=== PATIENT | female | born 1985 | race Caucasian/White ===

== ENCOUNTER 2018-12-10 12:19 | Emergency (ER) | payer OTHER ==
[~2018-12-10] VITALS: Ht 170.2 cm; Wt 90.7 kg
--- OUTSIDE RECORDS SUMMARY | 2018-12-10 12:22 | XMS REPORT ---
Author Author David Segura [facility] eClinicalWorks Address Unknown Phone Unavailable Care Team Providers Care Sales Floor Manager Name Role Phone David Segura CP Unavailable Allergies, Adverse Reactions, Alerts Substance Reaction Event Type N.K.D.A. Info Not Available Non Drug Allergy Problems Problem Type Condition Code Onset Dates Condition Status Assessment Lupus M32.9 Active Problem Lupus M32.9 Active Medications Medication Code System Code Instructions Start Date End Date Status Dosage Ibuprofen ND 39403366814 200 MG Orally Three times a day Active 1 tablet with food or milk as needed BuPROPion HCl (Smoking Deter) ND 50414430221 150 MG Orally Once a day Active 1 tablet in the morning Levothyroxine Sodium ND 26896847109 50 MCG Orally Once a day Active 1 tablet on an empty stomach in the morning Pantoprazole Sodium ND 35029512052 40 MG Orally Once a day Active 1 tablet Escitalopram Oxalate ND 78302914693 20 MG Orally Once a day Active 0.5 tablet Hydroxychloroquine Sulfate ND 38047958295 200 MG Orally bid Jul 02, 2018 Active 1 tablet with food or milk Vital Signs Date/Time: Jul 15, 2018 BMI 36.33 Index Weight 232 lbs Height 67 in Temperature 98.1 F Cardiac Monitoring Heart Rate 74 /min Blood Pressure Diastolic 64 mm Hg Blood Pressure Systolic 110 mm Hg Results No Known Results Summary Purpose eClinicalWorks Submission
--- OUTSIDE RECORDS SUMMARY | 2018-12-10 12:22 | XMS REPORT ---
Author Uriel Gilbert Organization eClinicalWorks Address Unknown Phone Unavailable Care Team Providers Care Wood Gang Sawyer Name Role Phone Uriel Santana CP Unavailable Allergies No Known Allergies Problems Problem Type Condition Code Onset Dates Condition Status Problem Lupus M32.9 Active Medications No Known Medications Results No Known Results Summary Purpose eClinicalWorks Submission
--- OUTSIDE RECORDS SUMMARY | 2018-12-10 12:22 | XMS REPORT ---
Author Author Uriel Santana Organization eClinicalWorks Address Unknown Phone Unavailable Care Team Providers Care Underground Heavy Equipment Operator Name Role Phone Uriel Santana CP Unavailable Allergies No Known Allergies Problems Problem Type Condition Code Onset Dates Condition Status Problem Lupus M32.9 Active Medications No Known Medications Results No Known Results Summary Purpose eClinicalWorks Submission
--- OUTSIDE RECORDS SUMMARY | 2018-12-10 12:22 | XMS REPORT ---
Author Uriel Gilbert Organization eClinicalWorks Address Unknown Phone Unavailable Care Team Providers Care University Demonstrator Name Role Phone Uriel Santana CP Unavailable Allergies No Known Allergies Problems Problem Type Condition Code Onset Dates Condition Status Problem Lupus M32.9 Active Medications No Known Medications Results No Known Results Summary Purpose eClinicalWorks Submission
--- OUTSIDE RECORDS SUMMARY | 2018-12-10 12:22 | XMS REPORT ---
Author Author David Segura [facility] eClinicalWorks Address Unknown Phone Unavailable Care Team Providers Care Reconditioning Associate Name Role Phone ImeldaDavid faria Unavailable Allergies, Adverse Reactions, Alerts Substance Reaction Event Type N.K.D.A. Info Not Available Non Drug Allergy Problems Problem Type Condition Code Onset Dates Condition Status Assessment Lupus M32.9 Active Problem Lupus M32.9 Active Medications Medication Code System Code Instructions Start Date End Date Status Dosage Escitalopram Oxalate ND 18485189974 20 MG Orally Once a day Active 0.5 tablet Hydroxychloroquine Sulfate ND 95709353406 200 MG Orally bid Jul 02, 2018 Active 1 tablet with food or milk BuPROPion HCl (Smoking Deter) ND 15122151504 150 MG Orally Once a day Active 1 tablet in the morning Ibuprofen ND 32482058847 200 MG Orally Three times a day Active 1 tablet with food or milk as needed Nexium ND 56515535577 40 MG Orally Once a day Active 1 capsule Levothyroxine Sodium ND 91534482454 50 MCG Orally Once a day Active 1 tablet on an empty stomach in the morning Vital Signs Date/Time: Oct 08, 2018 BMI 35.58 Index Weight 234 lbs Height 68 in Temperature 97.1 F Cardiac Monitoring Heart Rate 72 /min Blood Pressure Diastolic 70 mm Hg Blood Pressure Systolic 118 mm Hg Results Name Result Date Reference Range Unit Abnormality Flag URINALYSIS WITH MICROSCOPIC ----BILIRUBIN NEGATIVE 45360760 NEGATIVE ----UROBILINOGEN <2.0 54066703 <=2.0 MG/DL ----SPECIFIC GRAVITY 1.018 32461009 1.005-1.035 ----LEUKOCYTE ESTERASE TRACE 20109775 NEGATIVE A ----NITRITE NEGATIVE 35691931 NEGATIVE ----pH 6.0 10359509 5.0-9.0 ----EPITHELIAL CELLS 5-10 11846198 0-10 /HPF ----PROTEIN NEGATIVE 00535572 NEGATIVE ----RED BLOOD CELLS 0-2 48531894 0-5 /HPF ----GLUCOSE NEGATIVE 32132621 NEGATIVE ----COLOR YELLOW 20181008 YELLOW-STRAW ----KETONES NEGATIVE 14778959 NEGATIVE ----WHITE BLOOD CELLS 0-5 69040930 0-5 /HPF ----APPEARANCE SLIGHTLY CLOUDY 04248265 CLEAR ----OCCULT BLOOD NEGATIVE 96483333 NEGATIVE SEDIMENTATION RATE ----SEDIMENTATION RATE 5 52104194 0-20 MM/HOUR COMPLEMENT C3 AND C4 ----COMPLEMENT C3 140 01236207 90-180 MG/DL ----COMPLEMENT C4 18 01657627 10-40 MG/DL COMPREHENSIVE METABOLIC PANEL ----SODIUM 140 41490314 133-146 MEQ/L ----CALC BUN/CREAT 15 84749394 6-28 RATIO ----CHLORIDE 100 20739033 95-107 MEQ/L ----POTASSIUM 4.4 64851077 3.5-5.4 MEQ/L ----CALCIUM 9.3 83298949 8.5-10.5 MG/DL ----PROTEIN, TOTAL 6.9 97047963 6.1-8.3 G/DL ----CARBON DIOXIDE 26 05912875 19-31 MEQ/L ----CALC A/G RATIO 2.0 39747575 1.0-2.6 RATIO ---- eGFR AMER. 125 22839641 >60 ML/MIN/1.73 ----BILIRUBIN, TOTAL 0.3 25030493 <=1.2 MG/DL ---- eGFR NON- AMER. 108 24014388 >60 ML/MIN/1.73 ----BUN 11 02048136 6-20 MG/DL ----ALBUMIN 4.6 74187467 3.5-5.2 G/DL ----CALC GLOBULIN 2.3 54275131 1.9-3.7 G/DL ----CREATININE 0.74 21774740 0.60-1.30 MG/DL ----ALT 40 71700710 5-40 U/L ----GLUCOSE 100 33075946 70-99 MG/DL H ----ALKALINE PHOSPHATASE 64 83009351 40-114 U/L ----AST 20 17892057 9-40 U/L CBC W/AUTO DIFF ----MCH 30.3 35493531 27.0-34.0 PG ----MCV 85.5 26383476 80.0-100.0 fL ----HEMATOCRIT 42.3 27201011 34.0-45.0 % ----HEMOGLOBIN 15.0 74257308 11.5-15.5 G/DL ----NEUTROPHILS 50.9 44785942 40.0-74.0 % ----RDW 12.1 41439254 11.0-15.0 % ----MCHC 35.5 36313315 32.0-35.5 G/DL ----EOSINOPHILS 3.7 60002467 0.0-7.0 % ----BASOPHILS 0.6 03334428 0.0-2.0 % ----PLATELET COUNT 248 26481472 130-400 K/UL ----RBC 4.95 03670853 3.80-5.10 M/UL ----WBC 4.6 72258784 4.0-11.0 K/UL ----LYMPHOCYTES 33.1 62470340 19.0-48.0 % ----MONOCYTES 11.7 17662873 4.0-13.0 % dsDNA ANTIBODY ----dsDNA ANTIBODY 10.0 20181008 SEE BELOW IU/ML H C-REACTIVE PROTEIN ----C-REACTIVE PROTEIN 0.6 55412437 <0.5 MG/DL H Summary Purpose eClinicalWorks Submission
--- OUTSIDE RECORDS SUMMARY | 2018-12-10 12:22 | XMS REPORT ---
Author Author David Segura [facility] eClinicalWorks Address Unknown Phone Unavailable Care Team Providers Care Automotive Fleet Supervisor Name Role Phone David Segura CP Unavailable Allergies No Known Allergies Problems Problem Type Condition Code Onset Dates Condition Status Assessment Lupus M32.9 Active Problem Lupus M32.9 Active Medications Medication Code System Code Instructions Start Date End Date Status Dosage Hydroxychloroquine Sulfate [facility] 88715995580 200 MG Orally bid Jul 02, 2018 Active 1 tablet with food or milk Results No Known Results Summary Purpose eClinicalWorks Submission
--- OUTSIDE RECORDS SUMMARY | 2018-12-10 12:22 | XMS REPORT ---
Author Uriel Gilbert Organization eClinicalWorks Address Unknown Phone Unavailable Care Team Providers Care Dirt Contractor Name Role Phone Uriel Santana CP Unavailable Allergies No Known Allergies Problems Problem Type Condition Code Onset Dates Condition Status Problem Lupus M32.9 Active Medications No Known Medications Results No Known Results Summary Purpose eClinicalWorks Submission
--- OUTSIDE RECORDS SUMMARY | 2018-12-10 12:22 | XMS REPORT | Continuity of Care Document ---
Author Author [facility] Address Unknown Phone Unavailable Problems Problem Status Onset Date Classification Date Reported Comments Source Lupus Active Problem 10/21/2018 Andrew Santana Medications Medication Details Route Status Patient Instructions Ordering Provider Order Date Source Hydroxychloroquine Sulfate 1 tablet with food or milk Orally Active 200 MG Orally bid Imelda 07/02/2018 Andrew Santana Escitalopram Oxalate 0.5 tablet Orally Active 20 MG Orally Once a day Imelda Andrew Santana BuPROPion HCl (Smoking Deter) 1 tablet in the morning Orally Active 150 MG Orally Once a day Imelda Andrew Santana Ibuprofen 1 tablet with food or milk as needed Orally Active 200 MG Orally Three times a day Imelda Andrew Santana Nexium 1 capsule Orally Active 40 MG Orally Once a day Imelda Andrew Santana Levothyroxine Sodium 1 tablet on an empty stomach in the morning Orally Active 50 MCG Orally Once a day Imelda Andrew Santana Pantoprazole Sodium 1 tablet Orally Active 40 MG Orally Once a day Imelda Andrew Santana Allergies, Adverse Reactions, Alerts Substance Category Reaction Severity Reaction type Status Date Reported Comments Source N.K.D.A. Adverse Reaction Info Not Available Adverse Reaction Active 10/08/2018 Andrew Santana Immunizations Immunization Date Given Site Status Last Updated Comments Source Results Order Name Results Value Reference Range Date Interpretation Comments Source Vital Signs Vital Sign Value Date Comments Source Weight 234 10/08/2018 Andrew Santana Height 68 10/08/2018 Andrew Kaurer Temperature Oral (F) 97.1 F 10/08/2018 Andrew Santana Heart Rate 72 10/08/2018 Andrew Santana Diastolic (mm Hg) 70 10/08/2018 Andrew Satnana Systolic (mm Hg) 118 10/08/2018 Andrew Kaurer Weight 232 07/15/2018 Andrew Santana Height 67 07/15/2018 Andrew Santana Temperature Oral (F) 98.1 F 07/15/2018 Andrew Santana Heart Rate 74 07/15/2018 Andrew Kaurer Diastolic (mm Hg) 64 07/15/2018 Andrew Santana Systolic (mm Hg) 110 07/15/2018 Andrew Santana Weight 237 07/09/2018 Andrwe Santana Height 67.5 07/09/2018 Andrew Santana Temperature Oral (F) 98.1 F 07/09/2018 Andrew Santana Heart Rate 72 07/09/2018 Andrew Santana Diastolic (mm Hg) 82 07/09/2018 Andrew Santana Systolic (mm Hg) 114 07/09/2018 Andrew Santana Encounters Location Location Details Encounter Type Encounter Number Reason For Visit Attending Provider ADM Date DC Date Status Source Procedures Procedure Code Date Perfomer Comments Source
--- OUTSIDE RECORDS SUMMARY | 2018-12-10 12:22 | XMS REPORT ---
Author Author David Segura [facility] eClinicalWorks Address Unknown Phone Unavailable Care Team Providers Care Hydraulic Engineer Name Role Phone David Segura CP Unavailable Allergies, Adverse Reactions, Alerts Substance Reaction Event Type N.K.D.A. Info Not Available Non Drug Allergy Problems Problem Type Condition Code Onset Dates Condition Status Assessment Lupus M32.9 Active Problem Lupus M32.9 Active Medications Medication Code System Code Instructions Start Date End Date Status Dosage Escitalopram Oxalate ND 62431204049 20 MG Orally Once a day Active 0.5 tablet Pantoprazole Sodium ND 29757250933 40 MG Orally Once a day Active 1 tablet Hydroxychloroquine Sulfate ND 53954821796 200 MG Orally Once a day Jul 02, 2018 Active 1 tablet with food or milk Ibuprofen ND 07366734569 200 MG Orally Three times a day Active 1 tablet with food or milk as needed BuPROPion HCl (Smoking Deter) ND 68783955027 150 MG Orally Once a day Active 1 tablet in the morning Levothyroxine Sodium ND 47440766445 50 MCG Orally Once a day Active 1 tablet on an empty stomach in the morning Vital Signs Date/Time: Jul 09, 2018 BMI 36.57 Index Weight 237 lbs Height 67.5 in Temperature 98.1 F Cardiac Monitoring Heart Rate 72 /min Blood Pressure Diastolic 82 mm Hg Blood Pressure Systolic 114 mm Hg Results No Known Results Summary Purpose eClinicalWorks Submission
--- OUTSIDE RECORDS SUMMARY | 2018-12-10 12:22 | XMS REPORT ---
Author Uriel Gilbert Organization eClinicalWorks Address Unknown Phone Unavailable Care Team Providers Care Mechanical Developer Prover Name Role Phone Uriel Santana CP Unavailable Allergies No Known Allergies Problems Problem Type Condition Code Onset Dates Condition Status Problem Lupus M32.9 Active Medications No Known Medications Results No Known Results Summary Purpose eClinicalWorks Submission
[2018-12-10] MEDS ORDERED: KETOROLAC TROMETHAMINE 30 MG/ML VIAL IV STA (12:58)
[2018-12-10] MEDS ORDERED: SODIUM CHLORIDE 0.9% 1000ML 1,000 ML IV SCH (13:00)
[2018-12-10] MEDS ORDERED: METOCLOPRAMIDE HCL 10 MG/2ML VIAL IV ONE (13:00)
[2018-12-10] MEDS ORDERED: DIPHENHYDRAMINE HCL INJ 50 MG/ML VIAL IV ONE (13:00)
[2018-12-10 13:43] LABS: BASOPHILS % 0.6 % (0.0-1.0); EOSINOPHILS # (AUTO) 0.6 (0.0-0.4); EOSINOPHILS % 8.6 % (0.0-6.0); HEMATOCRIT 42.7 % (34.2-44.1); HEMOGLOBIN 14.7 g/dL (12.0-16.0); LYMPHOCYTES # (AUTO) 1.8 (1.0-3.2); LYMPHOCYTES % 26.4 % (18.0-39.1); MEAN CORPUSCULAR HEMOGLOBIN 30.1 pg (28-32); MEAN CORPUSCULAR HGB CONC 34.4 g/dL (31-35); MEAN CORPUSCULAR VOLUME 87.3 fL (81-99); MONOCYTES # (AUTO) 0.8 (0.2-0.8); MONOCYTES % 11.2 % (4.4-11.3); NEUTROPHILS # (AUTO) 3.7 (2.1-6.9); NEUTROPHILS % 52.9 % (38.7-80.0); PLATELET COUNT 264 x10e3/uL (140-360); RED BLOOD COUNT 4.89 x10e6/uL (3.6-5.1); RED CELL DISTRIBUTION WIDTH 12.6 % (11.7-14.4)
[2018-12-10 13:58] LABS: ALANINE AMINOTRANSFERASE 30 IU/L (0-55); ALBUMIN 3.8 g/dL (3.5-5.0); ALBUMIN/GLOBULIN RATIO 1.4 (0.8-2.0); ALKALINE PHOSPHATASE 50 IU/L (40-150); ANION GAP 12.4 mmol/L (8-16); BLOOD UREA NITROGEN 12 mg/dL (7-26); BUN/CREATININE RATIO 15 (6-25); CALCIUM 9.2 mg/dL (8.4-10.2); CARBON DIOXIDE 23 mmol/L (22-29); CHLORIDE 107 mmol/L (98-107); EST GLOMERULAR FILTRATION RATE > 60 ML/MIN (60-); GLUCOSE 106 mg/dL (74-118); POTASSIUM 4.4 mmol/L (3.5-5.1); SODIUM 138 mmol/L (136-145)
--- NOTE | 2018-12-10 14:09 | Diagnostic Imaging Report ---
Exam: Head CT without contrast History: Left-sided frontal headaches that radiates to back of head. Comparison studies: None Technique: Axial images were obtained from the skull base to the vertex. Coronal and sagittal images reconstructed from the axial data. Dose modulation, iterative reconstruction, and/or weight based adjustment of the mA/kV was utilized to reduce the radiation dose to as low as reasonably achievable. Radiation dose: Total DLP: 1036 mGy*cm. Estimated effective dose: DLP x 0.015 Intravenous contrast: None Findings: Scalp: No abnormalities. Bones: No fractures, blastic or lytic lesions. Brain sulci: Appropriate for age. Ventricles: Normal in size and configuration. No hydrocephalus. Extra-axial spaces: No masses, no fluid collection. Parenchyma: No abnormal densities. No masses, hemorrhage, acute or chronic vascular insults. Sellar/suprasellar region: No abnormalities. Craniocervical junction: Patent foramen magnum. No Chiari one malformation. Included paranasal sinuses: Clear. Middle ear and mastoid cavities: Clear. IMPRESSION: No abnormalities. Signed by: Dr. Darinel Haynes M.D. on 12/10/2018 2:06 PM
[2018-12-10 14:43] LABS: BILIRUBIN,URINE NEGATIVE (NEGATIVE); CLARITY,URINE CLEAR (CLEAR); COLOR,URINE YELLOW (YELLOW); KETONES,URINE NEGATIVE (NEGATIVE); LEUKOCYTE ESTERASE ,URINE NEGATIVE (NEGATIVE); NITRITE,URINE NEGATIVE (NEGATIVE); PREGNANCY TEST, URINE NEGATIVE (NEGATIVE); PROTEIN,URINE DIPSTICK NEGATIVE (NEGATIVE); URINE UROBILINOGEN 0.2 mg/dL (0.2 - 1)
[2018-12-10 14:56] LABS: AMORPHOUS SEDIMENT,URINE FEW (FEW); BACTERIA,URINE FEW /HPF; EPITHELIAL CELLS,URINE MODERATE /LPF
== END 2018-12-10 14:49 | disposition home or self-care (01) ==
LOC: ER 12:19
DX: G44.211 Episodic tension-type headache, intractable (principal); M32.9 Systemic lupus erythematosus, unspecified; E03.9 Hypothyroidism, unspecified
CPT/HCPCS: 36415; 70450; 80053; 81001; 81025; 85025; 87086; 99284; J1200; J1885; J2765; J7030

== ENCOUNTER 2019-05-17 15:57 | Emergency (ER) | payer OTHER ==
[~2019-05-17] VITALS: Ht 170.2 cm; Wt 90.7 kg
--- OUTSIDE RECORDS SUMMARY | 2019-05-17 16:00 | XMS REPORT | Continuity of Care Document ---
Author Author [facility] Address Unknown Phone Unavailable Problems Problem [...] Three times a day Imelda Andrew Santana BuPROPion HCl (Smoking Deter) 1 tablet in the morning Orally Active 150 MG Orally Once a day Imelda Andrew Santana Levothyroxine Sodium 1 tablet on an empty stomach in the morning Orally Active 50 MCG Orally Once a day Imelda Andrew Santana Nexium 1 [...] Santana Diastolic (mm Hg) 70 10/08/2018 Andrew Santana Systolic (mm Hg) 118 10/08/2018 Andrew Kaurer Weight 232 07/15/2018 Andrew Santana Height 67 07/15/2018 Andrew Santana Temperature Oral (F) 98.1 F 07/15/2018 Andrew Santana Heart Rate 74 07/15/2018 Andrew Kaurer Diastolic (mm Hg) 64 07/15/2018 Andrew Santana Systolic (mm Hg) 110 07/15/2018 Andrew Santana Weight 237 07/09/2018 Andrew Santana Height 67.5 07/09/2018 Andrew Santana Temperature Oral (F) 98.1 F 07/09/2018 Andrew Santana Heart Rate 72 07/09/2018 Andrew Santana Diastolic (mm Hg) 82 07/09/2018 Andrewvincent Santana Systolic (mm Hg) 114 07/09/2018 Andrewvincent Santana Encounters Location Location Details Encounter Type Encounter Number Reason For Visit Attending Provider ADM Date DC Date Status Source Procedures Procedure Code Date Perfomer Comments Source
--- OUTSIDE RECORDS SUMMARY | 2019-05-17 16:01 | XMS REPORT ---
[facility] Address Unknown Phone Unavailable Care Team Providers Care Conductor And Engineer Name Role Phone Arline FINNEY Unavailable Unavailable Problems This patient has no known problems. Allergies, Adverse Reactions, Alerts This patient has no known allergies or adverse reactions. Medications This patient has no known medications. Results Test Description Test Time Test Comments Text Results Atomic Results Result Comments CT BRAIN WO 2018-12-10 14:02:00 [place] [address] Patient Name: REYMUNDO CAMACHO MR #: [id number] : 1985 Age/Sex: 33/F Req #: [id number] [facility] Physician: Ordered by: GAMA FINNEY MD Report #: [id number] Location: ER Room/Bed: Procedure: [id number] CT/CT BRAIN WO Exam Date: 12/10/18 Exam Time: 1330 REPORT STATUS: Signed Exam: Head CT without contrast History: Left-sided frontal headaches that radiates to back of head. Comparison studies: None Technique: Axial images were obtained from the skull base to the vertex. Coronal and sagittal images reconstructed from the axial data. Dose modulation, iterative reconstruction, and/or weight based adjustment of the mA/kV was utilized to reduce the radiation dose to as low as reasonably achievable. Radiation dose: Total DLP: 1036 mGy*cm. Estimated effective dose: DLP x 0.015 Intravenous contrast: None Findings: Scalp: No abnormalities. Bones: No fractures, blastic or lytic lesions. Brain sulci: Appropriate for age. Ventricles: Normal in size and configuration. No hydrocephalus. Extra-axial spaces: No masses, no fluid collection. Parenchyma: No abnormal densities. No masses, hemorrhage, acute or chronic vascular insults. Sellar/suprasellar region: No abnormalities. Craniocervical junction: Patent foramen magnum. No Chiari one malformation. Included paranasal sinuses: Clear. Middle ear and mastoid cavities: Clear. IMPRESSION: No abnormalities. Signed by: Dr. Antwon Haynes M.D. on 12/10/2018 2:06 PM Dictated By: ANTWON MULLEN MD [id number] Transcribed By: KAPIL on 12/10/18 1406 COPY TO: GAMA FINNEY MD
[2019-05-17] MEDS ORDERED: SODIUM CHLORIDE 0.9% 1000ML 1,000 ML IV STA (16:22)
[2019-05-17 16:48] LABS: BILIRUBIN,URINE NEGATIVE (NEGATIVE); CLARITY,URINE SL CLOUDY (CLEAR); COLOR,URINE YELLOW (YELLOW); KETONES,URINE NEGATIVE (NEGATIVE); LEUKOCYTE ESTERASE ,URINE TRACE (NEGATIVE); NITRITE,URINE NEGATIVE (NEGATIVE); PROTEIN,URINE DIPSTICK NEGATIVE (NEGATIVE); URINE UROBILINOGEN 0.2 mg/dL (0.2 - 1)
[2019-05-17 16:50] LABS: PREGNANCY TEST, URINE NEGATIVE (NEGATIVE)
[2019-05-17 16:59] LABS: BACTERIA,URINE FEW /HPF; EPITHELIAL CELLS,URINE FEW /LPF; RBC,URINE 0-5 /HPF (0-5); WBC,URINE (MAN) 0-5 /HPF (0-5)
[2019-05-17] MEDS ORDERED: BELLADONNA ALK/PHENOBARBITAL 5 ML UDC PO ONE (17:00)
[2019-05-17] MEDS ORDERED: LIDOCAINE VISC 2% SOLN 15 ML UDC PO ONE (17:00)
[2019-05-17] MEDS ORDERED: MAGNESIUM/ALUMINUM/SIMETHICONE 30 ML UDC PO ONE (17:00)
[2019-05-17] MEDS ORDERED: ONDANSETRON HCL INJ 2MG/ML 2ML 2 MG/ML VIAL IV ONE (17:00)
[2019-05-17 17:10] LABS: BASOPHILS % 0.5 % (0.0-1.0); EOSINOPHILS # (AUTO) 0.2 (0.0-0.4); EOSINOPHILS % 2.8 % (0.0-6.0); HEMOGLOBIN 13.7 g/dL (12.0-16.0); LYMPHOCYTES # (AUTO) 1.8 (1.0-3.2); LYMPHOCYTES % 31.2 % (18.0-39.1); MEAN CORPUSCULAR HEMOGLOBIN 29.7 pg (28-32); MEAN CORPUSCULAR HGB CONC 34.3 g/dL (31-35); MEAN CORPUSCULAR VOLUME 86.6 fL (81-99); MONOCYTES # (AUTO) 0.6 (0.2-0.8); MONOCYTES % 10.3 % (4.4-11.3); NEUTROPHILS # (AUTO) 3.2 (2.1-6.9); PLATELET COUNT 227 x10e3/uL (140-360); RED BLOOD COUNT 4.62 x10e6/uL (3.6-5.1); RED CELL DISTRIBUTION WIDTH 12.4 % (11.7-14.4)
[2019-05-17 17:31] LABS: AMYLASE 26 U/L (25-125); LIPASE 16 U/L (8-78)
[2019-05-17 17:33] LABS: ALANINE AMINOTRANSFERASE 20 IU/L (0-55); ALBUMIN 3.9 g/dL (3.5-5.0); ALBUMIN/GLOBULIN RATIO 1.8 (0.8-2.0); ALKALINE PHOSPHATASE 51 IU/L (40-150); ANION GAP 12.9 mmol/L (8-16); BLOOD UREA NITROGEN 11 mg/dL (7-26); BUN/CREATININE RATIO 14 (6-25); CARBON DIOXIDE 23 mmol/L (22-29); CHLORIDE 105 mmol/L (98-107); CREATININE, SERUM 0.77 mg/dL (0.57-1.11); EST GLOMERULAR FILTRATION RATE > 60 ML/MIN (60-); GLUCOSE 91 mg/dL (74-118); POTASSIUM 3.9 mmol/L (3.5-5.1); SODIUM 137 mmol/L (136-145)
[2019-05-17] MEDS ORDERED: LEVOTHYROXINE50 MCG PO (17:40)
[2019-05-17] MEDS ORDERED: ESCITALOPRAM OX20 MG PO (17:40)
[2019-05-17] MEDS ORDERED: BUPROPION XL150 MG PO (17:40)
[2019-05-17] MEDS ORDERED: HYDROXYCHLOROQ200 MG PO (17:40)
[2019-05-17] MEDS ORDERED: PHENTERMINE H37.5 M1 PO (17:40)
[2019-05-17] MEDS ORDERED: PANTOPRAZOLE SO40 MG PO (17:40)
[2019-05-17] MEDS ORDERED: MELOXICAM7.5 MG PO (17:40)
[2019-05-17] MEDS ORDERED: NEXIUM40 MG PO (17:40)
[2019-05-17] MEDS ORDERED: SODIUM CHLORIDE 0.9% 50ML 50 ML ONE (18:16)
[2019-05-17] MEDS ORDERED: IOPAMIDOL 370 MG/ML 200 ML INFUS..BTL INJ ONE (18:17)
--- NOTE | 2019-05-17 18:59 | Diagnostic Imaging Report ---
EXAMINATION: CT of the abdomen and pelvis with contrast. TECHNIQUE: Spiral CT images of the abdomen and pelvis were performed from the lung bases to the lesser trochanters after the intravenous administration of 100 cc of Isovue 370 and the oral administration of water. Coronal and sagittal reformatted images were obtained. COMPARISON: None. CLINICAL HISTORY:Stomach pain, suspected pancreatitis DISCUSSION: ABDOMEN/PELVIS: LOWER THORAX:Unremarkable. HEPATOBILIARY: No focal hepatic lesions. No intra or extrahepatic biliary ductal dilation. GALLBLADDER: No radio-opaque stones or sludge. No wall thickening. SPLEEN: No splenomegaly. PANCREAS: No focal masses or ductal dilatation. No peripancreatic fat stranding, free fluid or fluid collections. Normal enhancement. ADRENALS: No adrenal nodules. KIDNEYS/URETERS: No hydronephrosis, stones, or solid mass lesions. Right renal ptosis and malrotation. PELVIC ORGANS/BLADDER: Bladder is unremarkable. No wall thickening or focal lesions. Uterus is unremarkable. IUD in place in the endometrial cavity PERITONEUM/RETROPERITONEUM: No free air or fluid. LYMPH NODES: No intra-abdominal, retroperitoneal, pelvic or inguinal lymphadenopathy. VESSELS: The celiac trunk,superior and inferior mesenteric and bilateral renal arteries are patent The portal, superior mesenteric and splenic veins are patent. GI TRACT: No bowel dilation or evidence of obstruction. No pericolonic inflammatory changes. Appendix is well identified and normal in caliber. Stomach is decompressed but grossly unremarkable. No surrounding inflammatory stranding BONES AND SOFT TISSUE: No aggressive lytic lesions. Small fat-containing umbilical hernia. IMPRESSION: 1. No acute abdominopelvic abnormalities. Specifically, no CT evidence of pancreatitis. Correlate with serum amylase and lipase, as pancreas may have a normal CT appearance in mild pancreatitis. Signed by: Dr. Ismael Mireles M.D. on 05/17/2019 6:55 PM
[2019-05-17 19:51] VITALS: BP 100/70
== END 2019-05-17 19:53 | disposition home or self-care (01) ==
LOC: ER 15:57
DX: R10.13 Epigastric pain (principal); R11.2 Nausea with vomiting, unspecified; R19.7 Diarrhea, unspecified; M32.9 Systemic lupus erythematosus, unspecified; E03.9 Hypothyroidism, unspecified; J45.909 Unspecified asthma, uncomplicated
CPT/HCPCS: 36415; 74177; 80053; 81001; 81025; 82150; 83690; 85025; 87086; 99284; J2405; J7030; Q9967